=== PATIENT | female | born 2000 ===

== ENCOUNTER → 2020-05-01 | Outpatient (CLI) | payer OTHER | END | disposition home or self-care (01) | LOC: PRENATAL 09:22 | PROVIDERS: ATTEND Obstetrics & Gynecology Maternal & Fetal Medicine | DX: O35.0XX1 Maternal care for (suspected) central nervous system malformation in fetus, fetus 1 (principal); O35.3XX1 Maternal care for (suspected) damage to fetus from viral disease in mother, fetus 1; O98.512 Other viral diseases complicating pregnancy, second trimester; Z36.89 Encounter for other specified antenatal screening; Z3A.19 19 weeks gestation of pregnancy ==

== ENCOUNTER 2020-09-16 20:06 | Inpatient (IN) | payer OTHER ==
[~2020-09-16] VITALS: Ht 160 cm; Wt 83.9 kg
[2020-09-16] MEDS ORDERED: PRENATAL CAPLE1 EAC1 (20:56)
[2020-09-16] MEDS ORDERED: LEVOTHYROXINE25 MCG (20:57)
== END 2020-09-19 14:27 | disposition home or self-care (01) | DRG 807 ==
LOC: LDR 20:06 → OB/GYN 09-18 00:01
PROVIDERS: ADMIT Obstetrics & Gynecology; ATTEND Obstetrics & Gynecology
PROC: 10E0XZZ Delivery of Products of Conception, External Approach (ICD-10-PCS; principal; 2020-09-18)
DX: O80 Encounter for full-term uncomplicated delivery (principal); Z37.0 Single live birth; Z3A.49 Greater than 42 weeks gestation of pregnancy; Z20.822 Contact with and (suspected) exposure to COVID-19